=== PATIENT | female | born 1945 | race Caucasian/White ===

== ENCOUNTER 2017-03-13 20:21 | Observation (INO) | payer MEDICARE ==
--- NOTE | 2017-03-13 20:48 | ERNOTE ---
Medical Problem HPI - Narrative Date of Service: 03/13/17 - General Chief Complaint: Screening, Blood Pressure Time Seen by Provider: 03/13/17 20:32 Source: patient Exam Limitations: no limitations - Immun/Allergies/Home Medications Immunizations: IMMUNIZATION HX Immunizations Up to Date Yes History of Influenza Vaccine No Hx Pneumococcal Vaccination No Allergies/Adverse Reactions: Allergies Sulfa (Sulfonamide Antibiotics) Allergy (Verified 03/13/17 20:31) Itching Home Medications: HOME MEDICATIONS Cholecalciferol [Vitamin D] 5,000 unit PO DAILY 10/25/16 [Last Taken Unknown] Aspirin 81 mg PO DAILY 03/13/17 [Last Taken Unknown] Glimepiride 4 mg PO BID 03/13/17 [Last Taken Unknown] Insulin Detemir [Levemir] 25 units SC BID 03/13/17 [Last Taken Unknown] Levomefolate/B6/B12/Algal Oil [Metanx Capsule] 1 each PO 03/13/17 [Last Taken Unknown] Losartan Potassium [Cozaar] 100 mg PO DAILY 03/13/17 [Last Taken Unknown] Montelukast Sodium [Singulair] 10 mg PO DAILY 03/13/17 [Last Taken Unknown] metFORMIN HCL [Metformin HCl ER] 100 mg PO BID 03/13/17 [Last Taken Unknown] - History of Present History Narrative: Pt. comes in with c/o dizziness, headache and pressure pressing in on her head since this morning. Pt. has a hx of vertigo but states that the spacey, dizziness that she has had since her headache onset this morning is new. Pt. states that the pain of the headache was resolved with reflexology but the odd feelings and dizziness continued throughout the day. Pt. also has a hx of HTN and states that her blood pressure was elevated at home prior to arrival to 150 systolic and she was concerned that her blood pressure ws causing the feelings. Review of Systems - Review of Systems Constitutional: Present: weakness, fatigue. Absent: fever, chills, malaise EYE: Present: no symptoms reported. Absent: eye pain, blurred vision, double vision, vision changes ENT: Present: no symptoms reported Respiratory: Present: no symptoms reported. Absent: shortness of breath, cough , wheezing Cardiology: Present: no symptoms reported. Absent: chest pain, palpitations, edema Gastrointestinal/Abdominal: Present: no symptoms reported. Absent: nausea, vomiting, diarrhea Genitourinary: Present: no symptoms reported. Absent: frequency, decreased urinary output Musculoskeletal: Present: no symptoms reported. Absent: back pain, joint pain Skin: Present: no symptoms reported. Absent: rash, change in color Neurological: Present: headache, dizziness/light-headedness. Absent: numbness, tingling Endocrine: Present: no symptoms reported All Other Systems: All systems neg except as marked - Patient's Past Medical History Patient History - Medical: Arthritis, Diabetes Type 2 Insulin Dependent, Other - vertigo Patient History - Cardiac/Respiratory: Hypertension Patient History - Cancer: Breast Patient History - Surgical Procedures: Cancer Surgery, Hysterectomy, T & A Patient History - Other: None LMP (females 10-50): Menopausal - Social History Living Situations: home Abuse History: No History of abuse Psych History: No pertinent hx Alcohol Use: none Drug Use: none - Immunizations Immunizations Up to Date: Yes Hx Pneumococcal Vaccination: No History of Influenza Vaccine: No Physical Exam - Physical Exam General Appearance: Present: wd/wn, alert, no apparent distress Eye Exam: Normal inspection: bilateral, PERRL: bilateral, EOMI: bilateral Ears, Nose, Throat: Present: normal ENT inspection, normal pharynx Neck: Present: normal inspection, nontender. Absent: lymphadenopathy (R), lymphadenopathy (L) Respiratory: Present: no respiratory distress, normal breath sounds, no accessory muscle use, chest nontender, lungs clear Cardiovascular/Chest: Present: regular rate, rhythm, no murmur, normal peripheral pulses Gastrointestinal/Abdominal: Present: normal bowel sounds, nontender, nondistended, soft, no organomegaly Back Exam: Present: normal inspection, normal range of motion, no CVA tenderness , no vertebral tenderness Extremity Exam: Present: normal inspection, non-tender, normal range of motion, no edema Neurological Exam: Present: alert, oriented, normal mood/affect, no motor/ sensory deficits, inspector barrel II-XII nml as tested, normal cerebellar test Skin Exam: Present: normal color, warm/dry. Absent: pallor, skin rash ED Progress - Date and Time Seen: Date and Time: 03/13/17 20:46 Blood pressure is not bad for a nighttime BP on an elderly woman with a hx of HTN feel it is not warranted to add anymore antihypertensives at this time. 03/13/17 21:[address] Cabrera and he would like pt. admitted for observation and to have MRI in the morning and Dr Croft to see pt. in the morning. 03/13/17 21:59 Discussed with Sarah Beth and we will admit for observation - Results and Orders Patient's Lab Results:: I have reviewed the patient's lab results. - Vital Signs Patient's Vital Signs:: I have reviewed the patient's vital signs. Vital Signs: Vital Signs 03/13/17 20:26 Temperature 36.5 C Pulse Rate 67 Respiratory 16 Rate Blood Pressure 164/92 - CT/Ultrasound CT/Ultrasound Narrative: Abnormally enlarged ventricles disproportionate to atrophy. - Progress/Reassessment Chief Complaint: Screening, Blood Pressure Progress:: Unchanged Departure - Departure Clinical Impression: Cerebral ventriculomegaly Disposition: [facility] Condition: Fair
--- OUTSIDE RECORDS SUMMARY | 2017-03-13 21:13 | XMS REPORT | Continuity of Care Document ---
:1945 Author Organization [facility] ([facility]) Address [address] [place] [address] Phone [phone] Care Team Providers Name Role Phone Provider, No-Primary Care Primary Care Provider Unavailable Source Comments This disclosure is being made pursuant to the Care Everywhere program, applicable federal and state laws, and may not contain all informaitonavailable regarding this patient.[facility] ([facility]) Active Allergies and Adverse Reactions No Known Allergies Current Medications Prescription Sig. Disp. Refills Start Date End Date Status LOSARTAN POTASSIUM Take by mouth. Active (COZAAR PO) insulin glargine inject 50 Units Active (LanTUS) 100 unit/mL subcutaneously at injection cartridge bedtime. metFORMIN 850 mg Take 425 mg by mouth 2 Active tablet times daily with meals. metroNIDAZOLE 500 mg Take 500 mg by mouth 2 Active tablet times daily. acidophilus-bifidobac Take 1 Cap by mouth Active terium daily. bifidum-bifidobacteri um longum (PROBIOTIC COLON SUPPORT) 240 mg (3 billion cell) capsule fluconazole 100 mg Take 1 tab every 14 6 Tab 1 08/12/2013 Active tablet days Indications: vaginal yeast infection oxybutynin 5 mg Take 1 Tab by mouth 3 90 Tab 11 08/14/2013 Active tablet times daily. Indications: INCREASED URINARY FREQUENCY Active Problems Problem Noted Date Diabetes mellitus 08/12/2013 Breast cancer 08/12/2013 Urinary urgency 08/12/2013 Mixed stress and urge urinary incontinence 08/12/2013 UTI (lower urinary tract infection) 08/12/2013 Social History Tobacco Use Types Packs/Day Years Used Date Never Smoker Smokeless Tobacco: Never Used Alcohol Use Drinks/Week oz/Week Comments No Last Filed Vital Signs Vital Sign Reading Time Taken Blood Pressure 130/69 08/12/2013 2:12 PM CDT Pulse 78 08/12/2013 2:12 PM CDT Temperature - - Respiratory Rate 16 08/12/2013 2:12 PM CDT Height 1.626 m (5' 4") 08/12/2013 3:01 PM CDT Weight 87.363 kg (192 lb 9.6 oz) 08/12/2013 3:01 PM CDT Body Mass Index 33.04 08/12/2013 3:01 PM CDT Oxygen Saturation - - Plan of Care Health Maintenance Due Date Last Done Comments HCV Screening 1945 Hepatitis B Vaccine (1 of 3 - Primary Series) 1945 Tdap Vaccine 1958 DIABETIC: Cholesterol 1965 Diabetic: Hdl 1965 DIABETIC: Hemoglobin A1C 1965 Diabetic: Ldl 1965 DIABETIC: Microalbumin 1965 DIABETIC: Triglycerides 1965 Td Vaccine 1965 Mammogram 1987 Colonoscopy 04/09/1997 Zoster Vaccine 2007 Osteoporosis Screening (DXA Bone Density) 2012 Pneumococcal Vaccine (1 of 2 - PCV13) 2012 DIABETIC: Foot Exam 08/12/2013 DIABETIC: Retinal Eye Exam 08/12/2013 Influenza Vaccine: Seasonal (#1) 06/11/2016 Results from Last 3 Months Not on file
[2017-03-13 21:18] LABS: Hematocrit 36.6 % (37.0-47.0); Hemoglobin 12.8 gm/dL (12.5-16.0); Mean Cell Volume 85.7 fl (78-100); Mean Platelet Volume 9.9 fl (6.0-9.5); Neutrophil # 2.8 K/mm3 (1.3-6.0); Neutrophil % 44.3 % (42-75.0); Platelet Count 264 K/mm3 (150-450); Red Blood Count 4.27 M/mm3 (4.2-5.4); Red Cell Distribution Width 12.2 % (11.5-14.0); White Blood Count 6.3 K/mm3 (4.0-10.5)
[2017-03-13 21:19] LABS: Urine Bilirubin Negative (NEGATIVE); Urine Blood Negative /ul (NEGATIVE); Urine Ketone Negative (NEGATIVE); Urine Nitrite Negative (NEGATIVE); Urine Protein Negative (NEGATIVE); Urine Specific Gravity <=1.005 SP.GR. (1.005-1.010); Urine Urobilinogen Normal (NORMAL)
[2017-03-13 21:30] LABS: Albumin * 3.6 gm/dl (3.4-5.0); Anion Gap 14.2 mmol/L (6.8-13.8); BUN/Creatinine Ratio 17.3 (9.0-21.6); Bilirubin, Total 0.4 mg/dL (0.0-1.1); Carbon Dioxide 24.7 mmol/L (24-32.6); Potassium 3.9 mmol/L (3.4-4.6); Total Protein 6.8 gm/dL (6.2-8.2)
[2017-03-13 21:31] LABS: Urine Appearance Clear; Urine Bacteria 2+; Urine Color Yellow; Urine RBC None Seen /hpf (0-5); Urine WBC 0-5 /hpf (0-5)
--- OUTSIDE RECORDS SUMMARY | 2017-03-13 22:13 | XMS REPORT | Continuity of Care Document ---
:1945 Author Organization [facility] ([facility]) Address [address] [place] [address] Phone [phone] Care Team Providers Name Role Phone Provider, No-Primary Care Primary Care Provider Unavailable Source Comments This disclosure is being made pursuant to the Care Everywhere program, applicable federal and state laws, and may not contain all informaitonavailable regarding this patient.[facility] ([facility]) Active Allergies and Adverse Reactions No Known [...]
--- NOTE | 2017-03-13 22:33 | HP ---
Chief Complaint - Chief Complaint Date of Service: 03/13/17 Time of Service: 22:26 Chief Complaint: "Headache, High B/P". Source of HPI- Pt;reliable, ER provider report, pt's EMR. History of Present Illness: Ms. Palmer is a 71-yr-old [place] pt of Dr. Sparkle Lechuga with a PMH of:Athritis, Asthma, Breast Ca, Chronic Low Back Pain, DM II, HTN & Sleep Apnea. Pt presented to the ED today due to an "elevated BP at home of 150/150 & 154/100. " She states she has had headache for many years but today's headache was the worst she has had in a long time. She chose to sleep in the afternoon and the headache was gone when she woke-up. Even though her headache was gone, she states that she continued to "feel spacey and dizzy for the rest of the day." She was concerned mostly about her BP and that is what caused her to come to the ED. She denies the associated symptoms of fevers or vision changes. Off note ,she reports that she sustained a fall about 10 yrs ago which led to BPPV. She states that for many years, she underwent Dorothy maneuver which helped significantly with her symptoms. However, she relocated from [place] about 1 yr ago and had not been able to find where she can continue with the vestibular rehabilitation. She just chose to "live with her symptoms, and they were not as bad." Her PCP just recently made arrangements with [facility] PT/OT and was scheduled to have the first appt. tomorrow 03/14. At the ED today, the labwork was unremarkable and V.S were stable. The head CT obtained had findings concerning for normal pressure hydrocephallus. The ERP spoke with the Neurologist on- call, Dr. Cabrera. The plan is to admit pt under observation status, obtain MRI of the Brain in am and Dr. Croft will evaluate the pt. - Patient's Past Medical History Patient History - Medical: Arthritis, Diabetes Type 2 Insulin Dependent, Other - vertigo Patient History - Cardiac/Respiratory: Hypertension Patient History - Cancer: Breast Patient History - Surgical Procedures: Cancer Surgery, Hysterectomy, T & A Patient History - Other: None LMP (females 10-50): Menopausal - Family History Mother Family History - Medical: , Diabetes Type 2 Insulin Dependent Family History - Cardiac/Respiratory: CHF Family History - Cancer: No pertinent family hx Father Family History - Medical: , Diabetes Type 2 Insulin Dependent Family History - Cardiac/Respiratory: No pertinent hx Family History - Cancer: No pertinent family hx - Social History Living Situations: home Abuse History: No History of abuse Psych History: No pertinent hx Alcohol Use: none Drug Use: none - Immunizations Immunizations Up to Date: Yes Hx Pneumococcal Vaccination: No History of Influenza Vaccine: No Review Of Systems (GEN) - Review of Systems Generalized/Overall Review: Absent: Weakness, Chills, Fever, Malaise EENTM: Present: Blurred Vision. Absent: Eye Pain, Tearing, Double Vision Respiratory: Absent: Cough, Shortness of Breath, Wheezing Cardiac: Absent: Chest Pain, Edema, Palpitations Abdominal: Absent: Nausea, Vomiting, Abdominal Pain, Constipation Genitourinary: Absent: Burning, Itching, Urgency, Frequency Musculoskeletal: Absent: Joint Pain, Back Pain Neurological: Present: Headache. Absent: Anxiety, Depressed, Emotional Problems , Numbness Skin: Absent: Dryness, Bruising Endocrine: Present: Intolerance to Cold. Absent: Increased Thirst Misc: All systems neg except as marked Immunizations: IMMUNIZATION HX Immunizations Up to Date Yes History of Influenza Vaccine No Hx Pneumococcal Vaccination No Allergies/Adverse Reactions: Allergies Allergy/AdvReac Type Severity Reaction Status Date / Time Sulfa (Sulfonamide Allergy Itching Verified 03/13/17 20:31 Antibiotics) Home Medications: HOME MEDICATIONS Cholecalciferol [Vitamin D] 5,000 unit PO DAILY 10/25/16 [Last Taken Unknown] Aspirin 81 mg PO DAILY 03/13/17 [Last Taken Unknown] Glimepiride 4 mg PO BID 03/13/17 [Last Taken Unknown] Insulin Detemir [Levemir] 25 units SC BID 03/13/17 [Last Taken Unknown] Levomefolate/B6/B12/Algal Oil [Metanx Capsule] 1 each PO 03/13/17 [Last Taken Unknown] Losartan Potassium [Cozaar] 100 mg PO DAILY 03/13/17 [Last Taken Unknown] Montelukast Sodium [Singulair] 10 mg PO DAILY 03/13/17 [Last Taken Unknown] metFORMIN HCL [Metformin HCl ER] 1,000 mg PO BID 03/13/17 [Last Taken Unknown] Exam - Exam Vital Signs: Vital Signs - Last Taken Temp 36.5 C 03/13/17 20:26 Pulse 78 03/13/17 22:05 Resp 18 03/13/17 22:05 BP 177/80 03/13/17 22:05 Pulse Ox 98 03/13/17 22:05 Constitutional: Present: Alert, Oriented x3, No distress ENT Exam: Present: normal ENT inspection, hearing grossly normal. Absent: nasal congestion, nasal drainage Eye Exam: bilateral eye: normal inspection, PERRL Neck: Present: non-tender, full range of motion, supple Back Exam: Present: normal inspection, no CVA tenderness Respiratory: Present: chest non-tender, lungs clear, no accessory muscle use Cardiovascular/Chest: Present: regular rate, rhythm, no chest tenderness, no murmur Abdomen: Present: Normal bowel sounds, soft, nontender /Rectal: Present: Exam deferred Extremity: Present: normal range of motion, non-tender, normal inspection Skin Exam: Present: warm/dry, no cyanosis Lymphatic: Present: no adenopathy Neurologic: Present: no motor/sensory deficits, alert, oriented x 3. Absent: aphasia, facial droop, motor weakness Appearance: Present: appropriate appearance, appropriate insight Eye contact: Present: cooperative, good eye contact, normal speech Thoughts: Present: normal thought pattern, no apparent hallucination Diagnostic Studies: Laboratory Results WBC 6.3 K/mm3 (4.0-10.5) 03/13/17 21:05 RBC 4.27 M/mm3 (4.2-5.4) 03/13/17 21:05 Hgb 12.8 gm/dL (12.5-16.0) 03/13/17 21:05 Hct 36.6 % (37.0-47.0) L 03/13/17 21:05 MCV 85.7 fl (78-100) 03/13/17 21:05 MCH 30.0 pg (27-31) 03/13/17 21:05 MCHC 35.0 g/dl (32-36) 03/13/17 21:05 RDW 12.2 % (11.5-14.0) 03/13/17 21:05 Plt Count 264 K/mm3 (150-450) 03/13/17 21:05 MPV 9.9 fl (6.0-9.5) H 03/13/17 21:05 Immature Gran % (Auto) 0.30 % (0.001-0.429) 03/13/17 21:05 Immature Gran # (Auto) 0.02 K/mm3 (0.000-0.0310) 03/13/17 21:05 Neutrophils % 44.3 % (42-75.0) 03/13/17 21:05 Lymphocytes % 44.7 % (20-51) 03/13/17 21:05 Monocytes % 7.0 % (0.0-9) 03/13/17 21:05 Eosinophils % 2.9 % (0.0-3.0) 03/13/17 21:05 Basophils % 0.8 % (0.0-1.0) 03/13/17 21:05 Nucleated RBC % 0.0 k/mm3 (0-1) 03/13/17 21:05 Neutrophils # 2.8 K/mm3 (1.3-6.0) 03/13/17 21:05 Lymphocytes # 2.8 k/mm3 (1.5-3.5) 03/13/17 21:05 Monocytes # 0.4 k/mm3 (0.0-1.0) 03/13/17 21:05 Eosinophils # 0.2 k/mm3 (0.0-0.7) 03/13/17 21:05 Absolute Basophils 0.1 k/mm3 (0.0-0.1) 03/13/17 21:05 Sodium 138 mmol/L (132-142) 03/13/17 21:05 Plasma Sodium 141 mmol/L (130-142) 03/13/17 21:05 Potassium 3.9 mmol/L (3.4-4.6) 03/13/17 21:05 Chloride 103 mmol/L (97-106) 03/13/17 21:05 Carbon Dioxide 24.7 mmol/L (24-32.6) 03/13/17 21:05 Anion Gap 14.2 mmol/L (6.8-13.8) H 03/13/17 21:05 BUN 14 mg/dL (3-23) 03/13/17 21:05 Creatinine 0.81 mg/dL (0.4-1.4) 03/13/17 21:05 Est GFR (Non-Af Amer) 75 mL/min (60-130) 03/13/17 21:05 BUN/Creatinine Ratio 17.3 (9.0-21.6) 03/13/17 21:05 Random Glucose 274 mg/dL (70-110) H 03/13/17 21:05 Calcium 9.0 mg/dL (7.9-10.9) 03/13/17 21:05 Calcium Adj for Albumin 9.0 mg/dL (8.4-10.2) 03/13/17 21:05 Total Bilirubin 0.4 mg/dL (0.0-1.1) 03/13/17 21:05 AST 15 U/L (0-48) 03/13/17 21:05 ALT 28 U/L (19-67) 03/13/17 21:05 Alkaline Phosphatase 29 U/L (50-170) L 03/13/17 21:05 Total Protein 6.8 gm/dL (6.2-8.2) 03/13/17 21:05 Albumin 3.6 gm/dl (3.4-5.0) 03/13/17 21:05 Urine Color Yellow 03/13/17 21:05 Urine Appearance Clear 03/13/17 21:05 Urine pH 6.0 pH (5.0-7.0) 03/13/17 21:05 Ur Specific [place] <=1.005 SP.GR. (1.005-1.010) 03/13/17 21:05 Urine Protein Negative mg/dL (NEGATIVE) 03/13/17 21:05 Urine Glucose (UA) 250 mg/dL (NEGATIVE) H 03/13/17 21:05 Urine Ketones Negative mg/dL (NEGATIVE) 03/13/17 21:05 Urine Blood Negative /ul (NEGATIVE) 03/13/17 21:05 Urine Nitrate Negative (NEGATIVE) 03/13/17 21:05 Urine Bilirubin Negative mg/dl (NEGATIVE) 03/13/17 21:05 Urine Urobilinogen Normal EU/dl (NORMAL) 03/13/17 21:05 Ur Leukocyte Esterase Negative /ul (NEGATIVE) 03/13/17 21:05 Urine RBC None seen /hpf (0-5) 03/13/17 21:05 Urine WBC 0-5 /hpf (0-5) 03/13/17 21:05 Ur Epithelial Cells None seen /hpf (0-5) 03/13/17 21:05 Urine Bacteria 2+ (NONE) H 03/13/17 21:05 Urine Culture Comments No culture indicated 03/13/17 21:05 Assessment/Plan - Assessment/Plan (1) Normal pressure hydrocephalus Assessment: As discussed in the HPI, will admit pt under observation status with the plan to obtain an MRI in am due to concerns for NPH on the head CT. Will provide supportive cares with: pain mgt for headache, B/P control, place on remote telemetry monitoring and neuro checks. Problem: Acute (2) Benign paroxysmal positional vertigo Assessment: Plan to obtain MRI in am. Will be helpfull as she has had Persistent vertigo and [employer] disease is suspected. Problem: Chronic (3) HTN (hypertension) Assessment: Stable- Continue Lorsatan. Problem: Chronic Qualifiers: Hypertension type: essential hypertension Qualified Code(s): I10 - Essential (primary) hypertension (4) Diabetes mellitus, type 2 Assessment: Stable- ACHS Accuchecks. Continue glimepiride, & Levemir, hold Metformin incase of imaging that needs contrast use. Problem: Chronic
[2017-03-13] MEDS: INSULIN DETEMIR 100 UNITS/ML VIAL SC SCH (23:58)
[2017-03-14] MEDS ORDERED: ACETAMINOPHEN 325 MG TABLET PO PRN (00:58)
[2017-03-14] MEDS ORDERED: CHOLECALCIFEROL 5,000 UNIT TABLET PO SCH (09:00)
[2017-03-14] MEDS ORDERED: ASPIRIN 81 MG TAB.CHEW PO SCH (09:00)
[2017-03-14] MEDS ORDERED: MONTELUKAST SODIUM 10 MG TABLET PO SCH (09:00)
[2017-03-14] MEDS ORDERED: LOSARTAN POTASSIUM 50 MG TABLET PO SCH (09:00)
[2017-03-14] MEDS: GLIMEPIRIDE 4 MG TABLET PO SCH ×2 (09:08)
[2017-03-14] MEDS: INSULIN DETEMIR 100 UNITS/ML VIAL SC SCH (09:09)
[2017-03-14 15:29] VITALS: BP 137/68
--- NOTE | 2017-03-14 16:32 | DS ---
(1) Vertigo Problem: Chronic (2) Cerebral vascular disease Problem: Chronic (3) Normal pressure hydrocephalus Diagnosis(s): Per Neurology consult and recommendations, refer patient to neurosurgery for further evaluation and management. Problem: Suspected (4) HTN (hypertension) Problem: Chronic Qualifiers: Hypertension type: essential hypertension Qualified Code(s): I10 - Essential (primary) hypertension Description of Stay: ADMISSION DATE: 03.13.2017 DISCHARGE DATE: 03.14.2017 ADMISSION HPI BY MAY WYATT: Ms. Palmer is a 71-yr-old [place] pt of Dr. Sparkle Lechuga with a PMH of:Athritis, Asthma, Breast Ca, Chronic Low Back Pain, DM II, HTN & Sleep Apnea. Pt presented to the ED today due to an "elevated BP at home of 150/150 & 154/100. " She states she has had headache for many years but today's headache was the worst she has had in a long time. She chose to sleep in the afternoon and the headache was gone when she woke-up. Even though her headache was gone, she states that she continued to "feel spacey and dizzy for the rest of the day." She was concerned mostly about her BP and that is what caused her to come to the ED. She denies the associated symptoms of fevers or vision changes. Off note ,she reports that she sustained a fall about 10 yrs ago which led to BPPV. She states that for many years, she underwent Dorothy maneuver which helped significantly with her symptoms. However, she relocated from [place] about 1 yr ago and had not been able to find where she can continue with the vestibular rehabilitation. She just chose to "live with her symptoms, and they were not as bad." Her PCP just recently made arrangements with [facility] and was scheduled to have the first appt. tomorrow 03/14. At the ED today, the labwork was unremarkable and V.S were stable. The head CT obtained had findings concerning for normal pressure hydrocephallus. The ERP spoke with the Neurologist on- call, Dr. Cabrera. The plan is to admit pt under observation status, obtain MRI of the Brain in am and Dr. Croft will evaluate the pt. HOSPITAL COURSE: Patient admitted to observation per on-call Neurologists recommendations. MRI completed with report as below and patient was also evaluated by Neurologist, Dr. Croft, during her inpatient stay. The patient was under the impression that based on the CT findings she was diagnosed with definitely having normal pressure hydrocephalus. It is unclear whether or not she was told she has NPH by the admitted MUSEUM SPECIALIST or the ED provider; however, I discussed at length with the patient that this is NOT a diagnosis that can be made based on imaging. She had an uneventful hospital course and further work-up and evaluation can be completed as an outpatient and thus, the patient discharged home. Radiologist was under the impression that she has previously been diagnosed with NPH. FOLLOW-UP APPOINTMENTS: Carotid Duplex Ultrasound scheduled for Saturday03.18.2017 PCP, Dr. Lechuga, on Saturday03.20.2017 @ 9:45AM At patients follow-up appointment with me, I will ask my nurses to schedule patient for a follow-up appointment with Neurology (Dr. Croft). I will also have them refer patient to Neurosurgery at the [facility] per Dr. Croft' s recommendation for evaluation and management of possible normal pressure hydrocephalus. NEW OR CHANGED MEDICATIONS: Aspirin 325mg PO daily (increased from 81mg daily) Atorvastatin 40mg PO qhs DISCONTINUED MEDICATIONS: None RADIOLOGY: CT head without contrast on 03/13/2017 showed: No acute intracranial hemorrhage or mass effect. Cortical atrophy and chronic microvascular ischemic white matter disease. Disproportionate ventriculomegaly relative to the degree of cortical atrophy. Correlate for normal pressure hydrocephalus. MRI brain with and without contrast on 03/14/2017 showed: 1. Age-appropriate atrophy with minimal ischemic small vessel disease. 2. Enlarged ventricles consistent with history of normal pressure hydrocephalus. 3. No acute intracranial process. Procedures Performed: none Results and Findings: Laboratory Tests 03/13/17 03/13/17 21:05 21:05 WBC 6.3 Hgb 12.8 Hct 36.6 L Plt Count 264 Sodium 138 Potassium 3.9 Chloride 103 Carbon Dioxide 24.7 BUN 14 Creatinine 0.81 Random Glucose 274 H Calcium 9.0 Total Bilirubin 0.4 AST 15 ALT 28 Alkaline Phosphatase 29 L Total Protein 6.8 Albumin 3.6 Discharge Disposition: Home self care Disposition: Home self-care Condition: Stable Discharge Activity: Activity as tolerated Discharge Diet: Consistent carbs, Other - Healthy diabetic diet Referrals: Sparkle Lechuga DO [Primary Care Provider] - Problem Oriented Discharge Instructions to Patient/Family: Vertigo, Easy-to- Read, Hypertension, [id number] Additional Patient Instructions (free text): Please schedule outpatient carotid duplex for either tomorrow or early next week on March at 7:00 AM. Patient is already scheduled to see Dr. Lechuga on Saturday03.20.2017 @ 9:45AM and she was instructed to keep this follow-up appointment. Please make sure carotid duplex is completed prior to this appointment. Please schedule patient to follow-up with Neurology (Dr. Croft) Please refer patient to Neurosurgery at the [facility] per Dr. Croft's recommendation for evaluation and management of possible normal pressure hydrocephalus. Prescriptions (Any new or edited meds): Aspirin [Aspirin Enteric Coated] 325 mg PO DAILY #30 tablet. Atorvastatin Calcium 40 mg PO HS #90 tablet Complete Home Medications List: Complete Home Medication List: Cholecalciferol [Vitamin D] 5,000 unit PO DAILY 10/25/16 Glimepiride 4 mg PO BID 03/13/17 Insulin Detemir [Levemir] 25 units SC BID 03/13/17 Levomefolate/B6/B12/Algal Oil [Metanx Capsule] 1 cap PO 03/13/17 Losartan Potassium [Cozaar] 100 mg PO DAILY 03/13/17 Montelukast Sodium [Singulair] 10 mg PO DAILY 03/13/17 metFORMIN HCL [Metformin HCl ER] 1,000 mg PO BID 03/13/17 Aspirin [Aspirin Enteric Coated] 325 mg PO DAILY #30 tablet. 03/14/17 Atorvastatin Calcium 40 mg PO HS #90 tablet 03/14/17 Amb Orders for Discharge: US Carotid Duplex Comp Bilat * Location: Determined By Patient
== END 2017-03-14 18:25 | disposition home or self-care (01) ==
LOC: ER 20:21 → MS 22:08
PROVIDERS: ADMIT Nurse Practitioner; ATTEND Internal Medicine
DX: H81.10 Benign paroxysmal vertigo, unspecified ear (principal); I67.89 Other cerebrovascular disease; I10 Essential (primary) hypertension; E11.9 Type 2 diabetes mellitus without complications; M19.90 Unspecified osteoarthritis, unspecified site; J45.909 Unspecified asthma, uncomplicated; M54.5 Low back pain; G47.30 Sleep apnea, unspecified; R51 Headache
CPT/HCPCS: 36415; 70450; 70553; 80053; 81001; 85025; 96372; 97162; 99284; G0378; G8981; G8982; G8983